=== PATIENT | female | born 1970 | race Caucasian/White ===

== ENCOUNTER → 2016-08-11 | Outpatient (REF) | payer OTHER ==
[2016-08-11 17:48] LABS: BASO % 0.7 % (0.0-1.0); EOS # 0.2 K/mm3 (0.0-0.50); EOS % 3.3 % (0.0-3.0); LARGE UNSTAINED CELL # 0.2 K/mm3 (0.0-0.4); LARGE UNSTAINED CELL % 2.4 % (0.0-4.0); LYMPH # 2.9 K/mm3 (1.5-4.5); LYMPH % 39.8 % (24.0-44.0); MEAN CORPUSCULAR HEMOGLOBIN 34.1 pg (27.0-33.0); MEAN CORPUSCULAR HGB CONC 33.6 g/dl (32.0-36.5); MEAN CORPUSCULAR VOLUME 101.7 fl (80.0-96.0); MONO # 0.4 K/mm3 (0.0-0.8); MONO % 5.8 % (0.0-5.0); NEUTROPHILS # 3.5 K/mm3 (1.8-7.7); PLATELET COUNT, AUTOMATED 125 k/mm3 (150-450); RED CELL DISTRIBUTION WIDTH 12.5 % (11.5-14.5); WHITE BLOOD COUNT 7.4 K/mm3 (4.0-10.0)
[2016-08-11 18:05] LABS: ALBUMIN 3.7 GM/DL (3.2-5.2); ALBUMIN/GLOBULIN RATIO 1.19 (1.00-1.93); ALKALINE PHOSPHATASE 34 U/L (45-117); ALT/SGPT 10 U/L (12-78); ANION GAP 9 MEQ/L (8-16); AST/SGOT 7 U/L (15-37); BILIRUBIN,TOTAL 0.4 MG/DL (0.2-1.0); BLOOD UREA NITROGEN 9 MG/DL (7-18); CALCIUM LEVEL 8.8 MG/DL (8.5-10.1); CARBON DIOXIDE LEVEL 30 MEQ/L (21-32); CHLORIDE LEVEL 103 MEQ/L (98-107); CREATININE FOR GFR 0.51 MG/DL (0.55-1.02); GLOMERULAR FILTRATION RATE > 60.0 (>58); GLUCOSE, FASTING 123 MG/DL (70-105); POTASSIUM SERUM 3.6 MEQ/L (3.5-5.1); SODIUM LEVEL 142 MEQ/L (136-145); TOTAL PROTEIN 6.8 GM/DL (6.4-8.2)
== END ==
LOC: M LABNEURO 14:56
PROVIDERS: ATTEND Psychiatry & Neurology Neurology
DX: G40.909 Epilepsy, unspecified, not intractable, without status epilepticus (principal); G43.909 Migraine, unspecified, not intractable, without status migrainosus

== ENCOUNTER → 2016-09-30 | Outpatient (CLI) | payer OTHER ==
[~2016-09-30] MED LIST: DEPA250T32 PO; GABA-282 PO; ISOVUE-370 76% 100ML VIAL (Q9967) As Ordered ONE; OMEP20TA PO
--- NOTE | 2016-10-01 07:19 | REP ---
Clinical: Acute chest pain shortness of breath. Technique: Axial contrast enhanced images from the thoracic inlet to the upper abdomen using 100 ml Isovue 370 intravenous contrast material with coronal and sagittal re-formations. Findings: Satisfactory enhancement of the pulmonary vasculature is achieved and no filling defects are identified to suggest pulmonary embolus. Thoracic aorta is normal caliber without aneurysm or dissection. Heart and pericardium are normal. Bilateral lung villa are well aerated and clear without acute pulmonary parenchymal consolidation or atelectasis. No nodule or mass lesion. No pleural effusion/reaction. No pneumothorax. No adenopathy. Impression: No evidence for pulmonary embolus. No acute pleuroparenchymal or mediastinal process. Signed by Flex Thornton MD 10/01/2016 07:11 A
== END ==
LOC: M RAD 17:47
PROVIDERS: ATTEND Internal Medicine Cardiovascular Disease
DX: R06.02 Shortness of breath (principal)
CPT/HCPCS: 71275; Q9967

== ENCOUNTER 2017-03-31 12:03 | Day surgery (SDC) | payer OTHER ==
[~2017-03-31] VITALS: Ht 162.6 cm; Wt 44.8 kg
[~2017-03-31 12:03] MED LIST changes: +BIMA01SOL OU; -ISOVUE-370 76% 100ML VIAL (Q9967) As Ordered ONE; +VITA500046 PO
[2017-03-31] MEDS ORDERED: LR 1,000 ML IV SCH (13:30)
[2017-03-31] MEDS ORDERED: LIDOCAINE 1% SDV INJ 30 ML VIAL As Ordered ONE (14:40)
[2017-03-31] MEDS ORDERED: PROPOFOL 200 MG/20 ML VIAL As Ordered ONE (14:44)
[2017-03-31] MEDS ORDERED: fentaNYL 100 MCG/2 ML INJECTION (J3010) As Ordered ONE (14:44)
[2017-03-31] MEDS ORDERED: MIDAZOLAM INJ 2 MG/2 ML VIAL (J2250) As Ordered ONE (14:44)
--- NOTE | 2017-03-31 15:48 | RO ---
DATE OF PROCEDURE: 03/31/2017 PREOPERATIVE DIAGNOSIS: Syncope. POSTOPERATIVE DIAGNOSIS: Syncope. PROCEDURE PERFORMED: Implantation of Medtronic implantable loop recorder. SURGEON: Isaiah Pretty MD CUT TO LENGTH OPERATOR: None. ANESTHESIA: Lidocaine 1% local/monitored anesthetic care. FINDINGS: Syncope. No specimens. Estimated blood loss less than 5 mL. No blood products replaced. No drains. No complications. PROCEDURE DESCRIPTION: Patient was prepped and draped over the anterior chest. Lidocaine 1% was used for local anesthesia. An incision was made with a #15 blade just less than a centimeter in length in the 4th interspace near the left parasternal border. The insertion tool with implant loop recorder was then placed with the guide of the insertion tool into the incision and advanced parallel to the skin in a caudal direction parallel to the sternum. The insertion tool was rotated 180 degrees and then, the implant loop recorder was advanced using the plunger to place it into the subcutaneous tissue. Next, the plunger was removed and then, the insertion tool was removed. The initial R wave was 1.05 mV. The skin was then approximated using subcuticular stitch consisting of #4-0 Biosyn with the suture material leaving at the level of the skin on either side as the incision. Next, three layers of Dermabond was applied and allowed to dry. The Biosyn suture was then removed from the incision. Next, Steri-Strips were placed crosswise across the incision. Mastisol was applied above and below the incision prior to applying the Steri-Strips. The implantable loop recorder placed was a [employer] Reveal LINQ, model #LNQ11 with serial #[id number].
[2017-03-31 16:00] VITALS: BP 106/62
== END 2017-03-31 16:15 | disposition home or self-care (01) ==
LOC: M SDC 12:03
PROVIDERS: ATTEND Internal Medicine Cardiovascular Disease
DX: R55 Syncope and collapse (principal); I49.9 Cardiac arrhythmia, unspecified; I34.1 Nonrheumatic mitral (valve) prolapse; K21.9 Gastro-esophageal reflux disease without esophagitis; M12.9 Arthropathy, unspecified; M54.2 Cervicalgia; H40.9 Unspecified glaucoma; G40.909 Epilepsy, unspecified, not intractable, without status epilepticus; Z88.8 Allergy status to other drugs, medicaments and biological substances; Z79.899 Other long term (current) drug therapy; Z90.410 Acquired total absence of pancreas; Z72.0 Tobacco use; Z98.1 Arthrodesis status
CPT/HCPCS: 33282; C1764; J0690; J2250; J3010

== ENCOUNTER → 2018-03-11 | Outpatient (CLI) | payer OTHER | LOC: M WUC 12:35 | DX: J20.9 Acute bronchitis, unspecified (principal); R06.02 Shortness of breath | CPT/HCPCS: 71046 ==

== ENCOUNTER 2018-03-14 10:29 | Emergency (ER) | payer OTHER ==
[2018-03-14] MEDS: ALBUTEROL SULFATE 2.5 MG/0.5 ML INH NEB SOLN NEB (11:18)
[2018-03-14 11:25] LABS: BASO # 0.1 10^3/uL (0.0-0.2); BASO % 0.8 % (0.0-1.0); EOS # 0.3 10^3/uL (0.0-0.50); EOS % 3.2 % (0.0-3.0); HEMATOCRIT 47.4 % (36.0-47.0); HEMOGLOBIN 15.7 g/dl (12.0-15.5); IMMATURE GRANULOCYTE % 0.5 % (0-3.0); LYMPH # 2.1 10^3/uL (1.5-4.5); MEAN CORPUSCULAR HEMOGLOBIN 33.2 pg (27.0-33.0); MEAN CORPUSCULAR HGB CONC 33.1 g/dl (32.0-36.5); MEAN CORPUSCULAR VOLUME 100.2 fl (80.0-96.0); MONO # 0.7 10^3/uL (0.0-0.8); MONO % 6.4 % (0.0-5.0); NEUTROPHILS # 7.6 10^3/uL (1.8-7.7); NEUTROPHILS % 70.1 % (36.0-66.0); PLATELET COUNT, AUTOMATED 328 10^3/uL (150-450); RED BLOOD COUNT 4.73 10^6/uL (4.00-5.40); RED CELL DISTRIBUTION WIDTH 12.6 % (11.5-14.5); WHITE BLOOD COUNT 10.8 10^3/uL (4.0-10.0)
[2018-03-14] MEDS: methylPREDNISolone INJ 125 MG/2 ML VIAL (J2930) IV (11:25)
[2018-03-14] MEDS: NS 1,000 ML IV (11:25)
[2018-03-14] MEDS: KETOROLAC 30 MG/ML VIAL (J1885) IV (11:28)
[2018-03-14 11:39] LABS: D-DIMER QUANT 499.8 ng/ml (<500)
[2018-03-14 11:56] LABS: ANION GAP 7 MEQ/L (8-16); BLOOD UREA NITROGEN 10 MG/DL (7-18); CALCIUM LEVEL 8.9 MG/DL (8.5-10.1); CARBON DIOXIDE LEVEL 29 MEQ/L (21-32); CHLORIDE LEVEL 109 MEQ/L (98-107); CREATININE FOR GFR 0.59 MG/DL (0.55-1.30); GLOMERULAR FILTRATION RATE > 60.0 (>58); GLUCOSE, FASTING 80 MG/DL (70-100); POTASSIUM SERUM 4.1 MEQ/L (3.5-5.1); SODIUM LEVEL 145 MEQ/L (136-145)
[2018-03-14 11:59] LABS: ALBUMIN 3.8 GM/DL (3.2-5.2); ALBUMIN/GLOBULIN RATIO 1.06 (1.00-1.93); ALKALINE PHOSPHATASE 65 U/L (45-117); ALT/SGPT 21 U/L (12-78); AST/SGOT 15 U/L (7-37); BILIRUBIN,DIRECT 0.1 MG/DL (0.0-0.2); BILIRUBIN,TOTAL 0.3 MG/DL (0.2-1.0); CK-MB VALUE MASS < 1.0 NG/ML (<3.6); CPK CREATINE PHOSPHOKINASE 39 U/L (26-192); MB/CK RELATIVE INDEX 2.56 (< OR =4); TOTAL PROTEIN 7.4 GM/DL (6.4-8.2); TROPONIN I < 0.02 NG/ML (< 0.10)
[2018-03-14] MEDS ORDERED: ISOVUE-370 76% 100ML VIAL (Q9967) As Ordered (12:14)
== END 2018-03-14 13:37 | disposition home or self-care (01) ==
LOC: M ED 10:29
DX: J18.1 Lobar pneumonia, unspecified organism (principal); S29.011A Strain of muscle and tendon of front wall of thorax, initial encounter; E86.0 Dehydration; I45.19 Other right bundle-branch block; I77.89 Other specified disorders of arteries and arterioles; R56.9 Unspecified convulsions; K21.9 Gastro-esophageal reflux disease without esophagitis; Z87.891 Personal history of nicotine dependence; Z82.49 Family history of ischemic heart disease and other diseases of the circulatory system; Z79.899 Other long term (current) drug therapy; Z88.8 Allergy status to other drugs, medicaments and biological substances
CPT/HCPCS: Q9967

== ENCOUNTER → 2018-04-08 | Outpatient (CLI) | payer OTHER | LOC: M WHC 13:51 | DX: Z12.31 Encounter for screening mammogram for malignant neoplasm of breast (principal); Z78.0 Asymptomatic menopausal state; Z80.3 Family history of malignant neoplasm of breast | CPT/HCPCS: 77067 ==

== ENCOUNTER 2018-12-07 12:07 | Day surgery (SDC) | payer BC ==
[~2018-12-07] VITALS: Ht 160 cm; Wt 43.0 kg
[~2018-12-07 12:07] MED LIST changes: +AMOX-CLAV; +AUGM875T28 PO; -GABA-282 PO; +GABA-843 PO; +KETO10TAB PO; +LR 1,000 ML IV ONE; +TESS100C PO; +VITA500075 PO; +ceFAZolin SOD 1 GM in D5W MINI-BAG PLUS 50 ML IV ONE
[2018-12-07] MEDS ORDERED: fentaNYL 100 MCG/2 ML INJECTION (J3010) As Ordered ONE (13:12)
[2018-12-07] MEDS ORDERED: MIDAZOLAM INJ 2 MG/2 ML VIAL (J2250) As Ordered ONE (13:12)
[2018-12-07] MEDS ORDERED: LIDOCAINE 1% SDV INJ 30 ML VIAL As Ordered ONE (14:07)
--- NOTE | 2018-12-07 15:08 | RO ---
DATE OF PROCEDURE: 12/07/2018 PREPROCEDURE DIAGNOSIS: Medtronic implantable loop recorded in situ. POSTPROCEDURE DIAGNOSIS: Medtronic implantable loop recorded in situ. FINDINGS: Medtronic implantable loop recorded in situ. PROCEDURE: Explantation of the implantable loop recorded. SURGEON: Dr. Isaiah Pretty. GO CART MECHANIC: None. ANESTHESIA: Lidocaine 1% local/monitored anesthetic care. SPECIMENS: Old Medtronic implantable loop recorder. ESTIMATED BLOOD LOSS: Less than 2 mL. No blood products placed. DRAINS: No drains. COMPLICATIONS: No complications DESCRIPTION OF PROCEDURE: The patient was prepped and draped over the sternum and left anterior chest over the existing implantable loop recorder near the left parasternal border. Lidocaine 1% was as a local anesthetic. An incision over the existing scar overlying the implantable loop recorder was made with a #15 blade. A snap was placed across with the implantable loop recorded and used to pull the implantable loop recorder out of the patient. Next, the incision was approximated temporarily using a #4-0 Biosyn suture placed subcuticular in a continuous stitch with the ends of the stitch protruding from the skin at both ends. Three layers of Dermabond was applied and the #4-0 Biosyn was pulled from the incision and removed entirely. The patient tolerated the procedure well without any immediate complications.
[2018-12-07 16:15] VITALS: BP 123/77
[2018-12-07] MEDS ORDERED: ACETAMINOPHEN TAB 650MG DOSE (2X325MG) PO PRN (16:15)
[2018-12-07] MEDS ORDERED: METOCLOPRAMIDE INJ 10MG/2ML VIAL (J2765) IV PRN (16:15)
[2018-12-07] MEDS ORDERED: LR 1,000 ML IV SCH (16:15)
[2018-12-07] MEDS ORDERED: PERCOCET 5MG/325MG TAB PO PRN (16:15)
[2018-12-07] MEDS ORDERED: fentaNYL 100 MCG/2 ML INJECTION (J3010) IV PRN (16:15)
[2018-12-07] MEDS ORDERED: ONDANSETRON 4MG/2ML VIAL (J2405) IV PRN (16:15)
[2018-12-08] MEDS ORDERED: PROPOFOL 200 MG/20 ML VIAL As Ordered ONE (07:11)
== END 2018-12-07 16:30 | disposition home or self-care (01) ==
LOC: M SDC 12:07
PROVIDERS: ATTEND Internal Medicine Cardiovascular Disease
DX: Z45.09 Encounter for adjustment and management of other cardiac device (principal); R07.89 Other chest pain; I34.0 Nonrheumatic mitral (valve) insufficiency; K21.9 Gastro-esophageal reflux disease without esophagitis; Z79.899 Other long term (current) drug therapy; F17.210 Nicotine dependence, cigarettes, uncomplicated; Z95.818 Presence of other cardiac implants and grafts; Z46.89 Encounter for fitting and adjustment of other specified devices
CPT/HCPCS: 33286; J0690; J2250; J3010

== ENCOUNTER → 2021-07-20 | Outpatient (CLI) | payer BC, OTHER ==
[~2021-07-20] MED LIST changes: +D 50CAP3 PO; +GABA-282 PO; -GABA-843 PO; +LATA0.0015 OU; -LR 1,000 ML IV ONE; +OMEP-358 PO; -OMEP20TA PO; +VITA100091 PO; -ceFAZolin SOD 1 GM in D5W MINI-BAG PLUS 50 ML IV ONE
== END ==
LOC: M LABSMTC 12:51
PROVIDERS: ATTEND Anesthesiology
DX: Z01.818 Encounter for other preprocedural examination (principal); Z11.52 Encounter for screening for COVID-19

== ENCOUNTER 2021-07-25 10:28 | Day surgery (SDC) | payer OTHER ==
[~2021-07-25] VITALS: Ht 160 cm; Wt 42.4 kg
[~2021-07-25 10:28] MED LIST changes: +NS 1,000 ML IV ONE
[2021-07-25] MEDS ORDERED: LIDOCAINE 2% MDV 20ML VIAL As Ordered ONE (11:09)
[2021-07-25] MEDS ORDERED: propofoL 200 MG/20 ML VIAL As Ordered ONE ×2 (11:09→11:10)
[2021-07-25 11:50] VITALS: BP 105/70
== END 2021-07-25 11:54 | disposition home or self-care (01) ==
LOC: M OPP 10:28
PROVIDERS: ATTEND Surgery
DX: K57.30 Diverticulosis of large intestine without perforation or abscess without bleeding (principal); K59.00 Constipation, unspecified; R10.84 Generalized abdominal pain; F17.210 Nicotine dependence, cigarettes, uncomplicated; I34.9 Nonrheumatic mitral valve disorder, unspecified; Z88.8 Allergy status to other drugs, medicaments and biological substances

== ENCOUNTER → 2022-03-10 | Outpatient (CLI) | payer OTHER ==
[~2022-03-10] MED LIST changes: -NS 1,000 ML IV ONE
== END ==
LOC: M WUC 10:46
PROVIDERS: ATTEND Internal Medicine
DX: M54.9 Dorsalgia, unspecified (principal)

== ENCOUNTER → 2022-07-31 | Outpatient (REF) | payer OTHER ==
[2022-07-31 14:32] LABS: BILIRUBIN,DIRECT 0.2 MG/DL (<0.4); BILIRUBIN,TOTAL 0.7 MG/DL (0.3-1.2); TOTAL PROTEIN 6.7 G/DL (5.7-8.2)
== END ==
LOC: M SFHCADAM 08:10
PROVIDERS: ATTEND Nurse Practitioner Family
DX: B35.3 Tinea pedis (principal)

== ENCOUNTER → 2023-05-19 | Outpatient (CLI) | payer OTHER | LOC: M WHC 11:03 | PROVIDERS: ATTEND Internal Medicine | DX: Z12.31 Encounter for screening mammogram for malignant neoplasm of breast (principal) ==

== ENCOUNTER → 2023-07-28 | Outpatient (CLI) | payer OTHER | LOC: M RAD 12:52 | PROVIDERS: ATTEND Internal Medicine | DX: D32.0 Benign neoplasm of cerebral meninges (principal) ==

== ENCOUNTER → 2023-09-18 | Outpatient (CLI) | payer OTHER ==
[2023-09-18 18:58] LABS: BLOOD UREA NITROGEN 9 MG/DL (9-23); CREATININE FOR GFR 0.46 MG/DL (0.55-1.30); FOLATE 20.76 NG/ML (>5.4); GLOMERULAR FILTRATION RATE > 60.0 (>51); THYROID STIMULATING HORMONE 1.143 uIU/ML (0.55-4.78)
[2023-09-18 18:59] LABS: VITAMIN B12 LEVEL 412 PG/ML (211-911)
== END ==
LOC: M LABDRWAD 11:21
PROVIDERS: ATTEND Psychiatry & Neurology Neurology
DX: R26.89 Other abnormalities of gait and mobility (principal)

== ENCOUNTER → 2024-01-27 | Outpatient (CLI) | payer OTHER ==
[~2024-01-27] MED LIST changes: +PROHANCE 279.3MG/ML 5ML VIAL ONE
== END ==
LOC: M PLAIMG 13:04
PROVIDERS: ATTEND Neurological Surgery
DX: D32.0 Benign neoplasm of cerebral meninges (principal)
CPT/HCPCS: 70553; A9576

== ENCOUNTER → 2025-01-17 | Outpatient (CLI) | payer OTHER ==
[~2025-01-17] MED LIST changes: -DEPA250T32 PO; +DIVA-65 PO; +GABA-1172 PO; -GABA-282 PO; -PROHANCE 279.3MG/ML 5ML VIAL ONE
== END ==
LOC: M WHC 14:34
PROVIDERS: ATTEND Internal Medicine
DX: Z12.31 Encounter for screening mammogram for malignant neoplasm of breast (principal); R92.323 Mammographic fibroglandular density, bilateral breasts

== ENCOUNTER → 2025-01-17 | Outpatient (CLI) | payer OTHER ==
[2025-01-17 19:05] LABS: BASO # 0.1 10^3/uL (0.0-0.2); BASO % 1.2 % (0.0-1.0); EOS # 0.1 10^3/uL (0.0-0.5); EOS % 1.7 % (0.0-3.0); LYMPH # 2.7 10^3/uL (1.5-5.0); LYMPH % 35.4 % (24.0-44.0); MONO # 0.8 10^3/uL (0.0-0.8); MONO % 10.6 % (2.0-8.0); NEUTROPHILS # 3.8 10^3/uL (1.5-8.5); NEUTROPHILS % 50.8 % (36.0-66.0); PLATELET COUNT, AUTOMATED 228 10^3/uL (150-450)
[2025-01-17 19:27] LABS: ALT/SGPT 15 U/L (7.0-40); AST/SGOT 16 U/L (<34); CALCIUM LEVEL 9.3 MG/DL (8.5-10.1); CARBON DIOXIDE LEVEL 30 MMOL/L (20-31); CHLORIDE LEVEL 106 MMOL/L (98-107); CREATININE FOR GFR 0.58 MG/DL (0.55-1.30); GLOMERULAR FILTRATION RATE > 90.0 (>51); POTASSIUM SERUM 4.2 MMOL/L (3.5-5.1); SODIUM LEVEL 143 MMOL/L (136-145)
[2025-01-17 19:29] LABS: TOTAL 25(OH) VITAMIN D 86.8 NG/ML (20.0-100.0)
== END ==
LOC: M PLALAB 16:01
PROVIDERS: ATTEND Internal Medicine
DX: D44.0 Neoplasm of uncertain behavior of thyroid gland (principal); E55.9 Vitamin D deficiency, unspecified

== ENCOUNTER → 2025-01-27 | Outpatient (CLI) | payer OTHER | LOC: M RAD 13:51 | PROVIDERS: ATTEND Internal Medicine | DX: F17.211 Nicotine dependence, cigarettes, in remission (principal) ==

== ENCOUNTER → 2025-02-27 | Outpatient (CLI) | payer OTHER ==
[2025-02-27 17:38] LABS: BASO # 0.1 10^3/uL (0.0-0.2); BASO % 1.3 % (0.0-1.0); EOS # 0.1 10^3/uL (0.0-0.5); EOS % 1.5 % (0.0-3.0); LYMPH # 2.4 10^3/uL (1.5-5.0); LYMPH % 31.2 % (24.0-44.0); MONO # 0.9 10^3/uL (0.0-0.8); MONO % 10.9 % (2.0-8.0); NEUTROPHILS # 4.3 10^3/uL (1.5-8.5); NEUTROPHILS % 54.8 % (36.0-66.0); PLATELET COUNT, AUTOMATED 204 10^3/uL (150-450)
== END ==
LOC: M PLALAB 16:35
PROVIDERS: ATTEND Internal Medicine
DX: D64.9 Anemia, unspecified (principal)

== ENCOUNTER → 2025-03-30 | Outpatient (CLI) | payer OTHER ==
[2025-03-30 13:43] LABS: BASO # 0.1 10^3/uL (0.0-0.2); BASO % 1.2 % (0.0-1.0); EOS # 0.1 10^3/uL (0.0-0.5); EOS % 1.3 % (0.0-3.0); LYMPH # 1.6 10^3/uL (1.5-5.0); LYMPH % 18.7 % (24.0-44.0); MONO # 0.8 10^3/uL (0.0-0.8); MONO % 9.3 % (2.0-8.0); NEUTROPHILS # 5.9 10^3/uL (1.5-8.5); NEUTROPHILS % 69.1 % (36.0-66.0); PLATELET COUNT, AUTOMATED 245 10^3/uL (150-450)
[2025-03-30 13:47] LABS: IRON (FE) 71.0 UG/DL (50-170); PERCENT SATURATION 16.8 % (13.2-45.0)
== END ==
LOC: M PLALAB 10:47
PROVIDERS: ATTEND Internal Medicine
DX: D64.9 Anemia, unspecified (principal)